=== PATIENT | female | born 1995 | race Caucasian/White ===

== ENCOUNTER 2020-09-09 06:42 | Inpatient (IN) | payer OTHER, SELFPAY ==
[2020-09-09] VITALS (61 sets, daily range): BP systolic 86–135; BP diastolic 33–79; PULSE 54–98; RESP 16; TEMP 36.1–36.5; O2SAT 100; BMI 37.8
--- NOTE | 2020-09-09 07:11 | LDADM ---
This patient, Argelia Mcneill, was admitted to Labor/Delivery/Recovery 104 on 09/09/20 at 06:42. Plans for labor, pain management and were discussed with patient. Patient/family oriented to hospital policies and general routines including ID bracelet, bed and alarms, visiting hours, pain management, procedures, bathroom and other care routines, personal items, smoking policy, room service/diet and guest tray routines, security routines, and visiting hours. Patient/Family are encouraged to report perceived risks to care and to ask questions if they do not understand what they are told or what they should do. See OBIX for further documentation.
[2020-09-09 07:12] LABS: Basophils Absolute Auto 0.1 K/mm3 (0.0-0.1); Basophils Percent Auto 0.3 % (0.2-1.2); Eosinophils Absolute Auto 0.1 K/mm3 (0-0.3); Eosinophils Percent Auto 0.8 % (0-4.4); Hematocrit 35.1 % (37.0-47.0); Hemoglobin 12.3 g/dL (12.0-15.0); Immature Granulocyte Absolute 0.18 K/mm3 (0.00-0.031); Immature Granulocyte Percent A 1.1 % (0-0.5); Lymphocytes Absolute Auto 3.36 K/mm3 (0.9-3.2); Lymphocytes Percent Auto 20.6 % (18.3-44.2); Mean Corpuscular Hemoglobin 32.3 pg (26-34); Mean Corpuscular Volume 92.1 fl (80-100); Mean Platelet Volume 9.2 fl (7.4-10.4); Monocytes Percent Auto 6.3 % (2.6-8.5); Neutrophils Absolute Auto 11.6 K/mm3 (1.3-6.7); Neutrophils Percent Auto 70.9 % (45.5-73.1); Platelet Count Result 317 k/mm3 (150-375); Red Blood Count 3.81 M/mm3 (4.2-5.4); Red Cell Distribution Width 13.1 % (11.5-14.5); White Blood Count 16.3 K/mm3 (4.5-10.0)
[2020-09-09] MEDS: LACTATED RINGERS 1,000 ML 125 ML IV CONT ×2 (07:22→09:21)
[2020-09-09] MEDS: AMPICILLIN 2 GM/NS 100 ML 2 GM/100 ML BAG IVPB (07:22)
[2020-09-09] MEDS: OXYTOCIN 30 UNITS/NS 500 ML 30 UNITS/500 ML BAG IV CONT (07:23)
--- NOTE | 2020-09-09 07:46 | WPDOBADMIT ---
Obstetrics - Admit Note Admission Note: record reviewed. No pertinent additions to the history and/or any subsequent changes in the physical findings that are not consistent with the expected course of the were found. EIl at 39.2 weeks gestation gbs negative, sve 3-4/60/-2 AROM minimal amount of clear fluid Additions to the history and/or subsequent changes in the physical findings follow. None.
[2020-09-09 08:25] LABS: Amphetamine Screen Urine Negative (Negative); Barbiturate Screen Urine Negative (Negative); Benzodiazepines Screen Urine Negative (Negative); Cannabinoid Screen Urine Positive (Negative); Cocaine Screen Urine Negative (Negative); Methadone Screen Urine Negative (Negative); Opiate Screen Urine Negative (Negative); Phencyclidine Screen Urine Negative (Negative)
[2020-09-09] MEDS: SODIUM CHLORIDE 0.9% IV 300 ML 600 ML I-UTERINE (11:13)
--- NOTE | 2020-09-09 16:19 | PM.OBPRVD ---
OB - Delivery Note Procedure Delivery date: 09/09/20 Procedure: vaginal delivery Intrapartal events: None Induction method: AROM and per pitocin protocol Delivery monitor: internal FHT and internal uterine Laceration Description: None Estimated blood loss (mL): 124 Anesthesia type: Epidural Disposition: other () Baby Date of : 09/09/20 Time of : 16:10 Weeks of gestation at delivery: 39 Infant gender: Male Weight (pounds): 6 Weight (ounces): 12 presentation: vertex position: Right Occiput Anterior Placenta delivery description: Spontaneous cord vessel description: 3 Vessels and Nuchal Cord
[2020-09-09] MEDS: OXYTOCIN 30 UNITS/NS 500 ML 30 UNITS/500 ML BAG 125 UNITS IV CONT (16:43)
[2020-09-09] MEDS: WITCH HAZEL 40 PADS 1 PAD TOPICAL (18:45)
[2020-09-10] MEDS: ACETAMINOPHEN 325 MG TABLET 650 MG PO (04:30)
[2020-09-10] MEDS: IBUPROFEN 600 MG TABLET PO (04:30)
[2020-09-10 05:33] LABS: Hematocrit 31.4 % (37.0-47.0); Hemoglobin 10.8 g/dL (12.0-15.0)
[2020-09-10 07:35] LABS: Rapid Plasma Reagin Non-Reactive (NonReactive)
--- NOTE | 2020-09-10 07:40 | WPDANLDPN2 ---
Anes-Prog Note L&D Date/Time: 09/10/20 07:40 Comfortable throughout: labor and delivery Neuraxial method: epidural Epidural/Spinal procedure site: clean & non-tender Neuro status: Neuro function grossly intact. Cardiovascular status: normal Respiratory status: normal Airway patency: baseline Mental status: baseline Post-Op hydration status: normal Vital Signs: Last Vital Signs Temp 36.1 C L 09/09/20 20:00 Pulse 76 09/09/20 20:00 Resp 16 09/09/20 20:00 BP 121/59 L 09/09/20 20:00 Pulse Ox 100 09/09/20 09:46 Pain score (VAS): 1 I/O: Intake & Output 09/09/20 09/09/20 09/10/20 15:59 23:59 07:59 Intake Total 1100 Output Total 224 Balance 1100 -224 Post-procedural complaints: none Patient feedback: Patient satisfied with anesthetic care.
[2020-09-10 07:50] VITALS: BP 112/50; PULSE 60; RESP 16; TEMP 36.5; O2SAT 100
--- NOTE | 2020-09-10 08:02 | PM.OBPNVD ---
OB - PN: Subj Subjective Date/time seen: 09/10/20 08:02 Patient comments: no complaints baby status: doing well OB - PN: Obj Data Labs CBC & Chem 7: 09/10/20 03:49 Labs: Laboratory Results - last 24 hr 09/09/20 09/09/20 09/09/20 07:04 07:04 07:59 Hgb Hct Urine Opiates Screen Negative Urine Methadone Screen Negative Ur Barbiturates Screen Negative Ur Phencyclidine Scrn Negative Ur Amphetamine Screen Negative U Benzodiazepines Scrn Negative Urine Cocaine Screen Negative U Cannabinoids Screen Positive A RPR Non-reactive Blood Type A Positive Antibody Screen Negative 09/10/20 03:49 Hgb 10.8 L Hct 31.4 L Urine Opiates Screen Urine Methadone Screen Ur Barbiturates Screen Ur Phencyclidine Scrn Ur Amphetamine Screen U Benzodiazepines Scrn Urine Cocaine Screen U Cannabinoids Screen RPR Blood Type Antibody Screen OB - PN A/P Plan day: 1 Plan: routine care and discharge home (F/U in 4 weeks) Time Spent With Patient Time: Total time spent is greater than 50% in coordination of care (as documented) at patient's floor/unit and/or counseling patient: Time with patient: less than 15 minutes Review of Systems Review of Systems: All systems reviewed & are unremarkable except as noted in HPI and below Exam Narrative: Exam Narrative: Fundus firm and vaginal flow controlled. No lower ext redness, warmth, or edema. Negative homans. Const: General: comfortable Chest: Breast/axilla inspection: normal inspection of the breasts Resp: Effort & Inspection: normal respiratory effort Cardio: Rate: regular rate GI: GI Palp: Yes Soft to palpation Psych: Appearance: grossly normal Affect: normal affect Attitude: cooperative Thought content: Yes Normal thought content present Judgement: Good judgement present (Psych)
--- NOTE | 2020-09-10 08:03 | PM.OBDSVD ---
DS: Admitting Diagnosis Admitting Diagnosis Admitting Diagnosis: induction DS: Discharge Diagnosis Discharge Diagnosis (1) Vaginal delivery: Code(s): O80 - Encounter for full-term uncomplicated delivery Status: Acute OB - DS: Summary OB Procedures : None OB Procedures Intrapartum: Spontaneous Vag Delivery OB Procedures: : None Time Spent with Patient Time attestation: Total time spent providing and/or coordinating discharge services: DS: Data Data Completed and Pending Labs on day of discharge: Labs from last 24 hours 09/10/20 09/09/20 09/09/20 03:49 07:59 07:04 Hgb 10.8 L Hct 31.4 L Urine Opiates Screen Negative Urine Methadone Screen Negative Ur Barbiturates Screen Negative Ur Phencyclidine Scrn Negative Ur Amphetamine Screen Negative U Benzodiazepines Scrn Negative Urine Cocaine Screen Negative U Cannabinoids Screen Positive A RPR Blood Type A Positive Antibody Screen Negative 09/09/20 07:04 Hgb Hct Urine Opiates Screen Urine Methadone Screen Ur Barbiturates Screen Ur Phencyclidine Scrn Ur Amphetamine Screen U Benzodiazepines Scrn Urine Cocaine Screen U Cannabinoids Screen RPR Non-reactive Blood Type Antibody Screen Discharge Plan Discharge Attending physician on discharge: Juan Daniel Cedeno Discharging Clinician: Allegra Chan Patient Disposition: Home, Self-Care Activity: pelvic rest Diet: as tolerated Patient Instructions: Antibiotic Form Stand Alone Forms: General Discharge Information Follow-up/Referrals: Juan Daniel Cedeno MD [Physician] - Discharge Medications: No Action No Home Medications RF: 0 Date of admission: 09/09/20 06:42 Primary Care Provider: PHYSICIAN,INTERPRETER TRANSLATOR Admitting Provider: Juan Daniel Cedeno Attending physician on admission: Juan Daniel Cedeno Condition: Stable
--- NOTE | 2020-09-10 12:00 | PC.NURSE ---
Patient viewed the discharge video Mother & Baby Care, The First Two Weeks . Patient was given the opportunity and encouraged to ask questions. Patient verbalized understanding of information shared and has been given the mother/baby guide for home reference.
[2020-09-11 09:20] VITALS: BP 129/63; PULSE 69; RESP 20; TEMP 36.7; O2SAT 100
== END 2020-09-10 17:56 | disposition home or self-care (01) | DRG 560 ==
LOC: ANHLDR 08:32 → ANHOB2 19:57
PROVIDERS: Advanced Practice Midwife; Admitting Provider Obstetrics & Gynecology; Visit Provider Obstetrics & Gynecology
DX: O69.81X0 Labor and delivery complicated by cord around neck, without compression, not applicable or unspecified (principal); Z37.0 Single live birth; Z3A.39 39 weeks gestation of pregnancy; O99.52 Diseases of the respiratory system complicating childbirth; J45.909 Unspecified asthma, uncomplicated; O99.324 Drug use complicating childbirth; F12.90 Cannabis use, unspecified, uncomplicated; O99.344 Other mental disorders complicating childbirth; F41.8 Other specified anxiety disorders
CPT/HCPCS: 36415; 80307; 85014; 85018; 85025; 86592; 86850; 86900; 86901; A9270; J0290; J2590; J2795; J7030; J7120

== ENCOUNTER 2021-06-04 13:57 | Emergency (ER) | payer OTHER, SELFPAY ==
--- NOTE | ~2021-06-04 | XR_ITS ---
EXAMINATION: XR chest 2V DATE: 06/04/2021 14:49 INDICATION: Right-sided chest pain and tightness TECHNIQUE: PA and lateral views of the chest were obtained. COMPARISON: None FINDINGS: The lungs are clear with no focal airspace opacities, pulmonary edema, pleural effusion or pneumothor ax. The cardiomediastinal silhouette is normal. Visualized bones and soft tissues are unremarkable. IMPRESSION: 1. Normal chest radiograph. Reviewed, dictated and finalized at location A. IMPRESSION: 1. Normal chest radiograph.
--- NOTE | 2021-06-04 14:00 | ECG_ITS ---
Measurements Intervals [place] Rate: 99 P: 61 WA: 124 QRS: 52 QRSD: 100 T: 51 QT: 345 QTc: 443 Interpretive Statements SINUS RHYTHM WITH SINUS ARRHYTHMIA NONSPECIFIC T-WAVE ABNORMALITY- ANTEROLATERAL LEADS BASELINE WANDER- V3-V4 BORDERLINE ECG Electronically Signed On 06-04-2021 14:36:57 CDT by Giovanni Jackson D.O.
[2021-06-04 14:25] VITALS: BP 144/84; PULSE 96; RESP 16; TEMP 37.1; O2SAT 100
[2021-06-04 14:57] LABS: Basophils Percent Auto 0.3 % (0.2-1.2); Eosinophils Absolute Auto 0.2 K/mm3 (0-0.3); Eosinophils Percent Auto 1.6 % (0-4.4); Hematocrit 43.3 % (37.0-47.0); Hemoglobin 14.6 g/dL (12.0-15.0); Immature Granulocyte Absolute 0.03 K/mm3 (0.00-0.031); Immature Granulocyte Percent A 0.3 % (0-0.5); Lymphocytes Absolute Auto 2.74 K/mm3 (0.9-3.2); Lymphocytes Percent Auto 27.9 % (18.3-44.2); Mean Corpuscular HGB Conc 33.7 g/dl (32-36); Mean Corpuscular Hemoglobin 31.5 pg (26-34); Mean Corpuscular Volume 93.3 fl (80-100); Mean Platelet Volume 9.1 fl (7.4-10.4); Monocytes Absolute Auto 0.7 K/mm3 (0.1-0.6); Monocytes Percent Auto 6.6 % (2.6-8.5); Neutrophils Absolute Auto 6.2 K/mm3 (1.3-6.7); Neutrophils Percent Auto 63.3 % (45.5-73.1); Platelet Count Result 351 k/mm3 (150-375); Red Blood Count 4.64 M/mm3 (4.2-5.4); Red Cell Distribution Width 12.7 % (11.5-14.5); White Blood Count 9.8 K/mm3 (4.5-10.0)
[2021-06-04 15:09] LABS: Prothrombin Time 12.6 Seconds (11.1-14.7)
[2021-06-04 15:10] LABS: Partial Thromboplastin Time 26.4 SECONDS (22.3-36.8)
--- NOTE | 2021-06-04 15:32 | ED.CHESTPAIN ---
HPI - Chest Pain General Chief Complaint: Chest Pain Stated Complaint: chest pain/dizziness Time Seen by Provider: 06/04/21 15:28 Source: RN notes reviewed History of Present Illness HPI narrative: Patient presents to emergency department from home for chest pain. Patient states symptoms began 2 days ago. Pain is located midsternal chest and radiates around under the right breast described as sharp and stabbing. Patient states pain is worse with movement and deep inspiration states she is taking nothing for the pain. States the pain has been constant over the past 2 days she denies any fevers or chills abdominal pain nausea vomiting diarrhea or any other symptoms she states she does feel like something is stuck in her throat but is had no difficulty swallowing and no throat pain Related Data Allergies Allergy/AdvReac Type Severity Reaction Status Date / Time No Known Allergies Allergy Verified 06/04/21 15:35 Review of Systems Review of Systems: Gen.: Denies fevers or chills ENT: Denies congestion Respiratory: Denies shortness of breath or cough CV: See HPI GI: Denies abdominal pain nausea, emesis or diarrhea Musculoskeletal: Denies back pain or muscle pain Neuro: Denies numbness, tingling, weakness or focal weakness Skin: Denies rash Except as documented, all other systems reviewed and negative [facility] Past Medical History Medical History (Updated 06/04/21 @ 16:35 by Kyle Boo DO) Patient denies significant medical history Family History Family History (Updated 08/30/20 @ 14:34 by Lukas Gramajo RN) Other No pertinent family history Social History Social History Smoking status: Current every day smoker Tobacco type: cigarettes Substance use: current Gender identity (if verbalized by the patient): Female Spiritual care concerns: No Exam Narrative: APPEARANCE: No acute distress, nontoxic, resting in bed EYES: EOMI HEENT: Normocephalic, atraumatic, OMM RESPIRATORY: No respiratory distress Clear to auscultation bilaterally with no rhonchi wheezing or rales. CARDIOVASCULAR: Regular rate and rhythm without murmurs rubs or gallops. Chest: Tender palpation over anterior chest just to the right of the sternum and region of ribs 7 and 8 with tenderness up under the right breast pain increased with rotation of the torso on deep inspiration ABDOMINAL: Soft, nontender, nondistended, no rebound or guarding MUSCULOSKELETAl: Moves all extremities. No clubbing, cyanosis or edema. NEURO: Awake and alert. Following commands, speech normal, no focal deficits SKIN:: Warm, dry. No rashes lesions or abrasions PSYCHIATRIC: Normal affect/mood, Course Course Emergency Course: Patient states chest pain is improved at this Discussed with patient results of workup and diagnosis. Discussed need for follow-up with primary care, proper use of medication, and reasons to return to the emergency department. Patient understands and agrees to current treatment plan Vital Signs Vital signs: Vital Signs Temperature 98.7 F 06/04/21 14:25 Pulse Rate 96 06/04/21 14:25 Respiratory Rate 16 06/04/21 14:25 Blood Pressure 144/84 H 06/04/21 14:25 Pulse Oximetry 100 06/04/21 14:25 Temperature 98.7 F 06/04/21 14:25 Pulse Rate 96 06/04/21 14:25 Respiratory Rate 16 06/04/21 14:25 Blood Pressure 144/84 H 06/04/21 14:25 Pulse Oximetry 100 06/04/21 14:25 MDM - Chest Pain MDM Narrative Medical decision making narrative: Patient's EKGs and labs are without significant high risk changes. Cardiac risk factors reviewed. Patient is felt likely low risk for ACS and reasonable for further risk stratification testing as an outpatient. Pain was not sudden or maximal in onset without tearing or ripping quality. No other signs of symptoms suggest aortic dissection. A low-risk Wells criteria is noted, PE is felt to be unlikely. No pneumonia seen on evaluation tod
--- NOTE | 2021-06-04 15:43 | PC.NURSE ---
Pt lying on stretcher talking on phone since arriving to room. Pt rates her pain 8/10 while talking on phone.
[2021-06-04] MEDS: KETOROLAC 30 MG/ML VIAL (*BKC) IV PUSH (15:44)
[2021-06-04 15:52] VITALS: PULSE 67
[2021-06-04 15:52] LABS: D Dimer 0.27 ug/mL (<0.48)
[2021-06-04 15:54] LABS: Anion Gap 11 mmol/L (8-16); Blood Urea Nitrogen 12 mg/dL (7-17); Calcium 10.3 mg/dL (8.4-10.2); Carbon Dioxide 24 mmol/L (22-30); Chloride 107 mmol/L (98-107); Estimated CRCL calculation 138 ml/min; Estimated Glomerular Filt Rate > 60; Glucose 106 mg/dL (65-110); Potassium 3.9 mmol/L (3.4-5.0); Sodium 142 mmol/L (137-145)
[2021-06-04 15:55] LABS: Alanine Aminotransferase 20 U/L (4-35); Albumin Level 4.9 g/dL (3.5-5.1); Alkaline Phosphatase 68 U/L (38-126); Aspartate Amino Transferase 22 U/L (14-36); Bilirubin,Total 1.2 mg/dL (0.2-1.3); Lipase 41 U/L (23-300)
[2021-06-04 16:06] LABS: Troponin I < 0.012 ng/mL (0.000-0.034)
[2021-06-04 16:54] VITALS: BP 132/72; PULSE 67; RESP 18; O2SAT 100
== END 2021-06-04 16:55 | disposition home or self-care (01) ==
PROVIDERS: General Practice; Emergency Provider Emergency Medicine
DX: R07.89 Other chest pain (principal); F17.210 Nicotine dependence, cigarettes, uncomplicated; R94.31 Abnormal electrocardiogram [ECG] [EKG]
CPT/HCPCS: 36415; 71046; 80048; 80076; 83690; 84484; 85025; 85380; 85610; 85730; 93005; 96374; 99284; J1885

== ENCOUNTER 2021-07-15 11:35 | Emergency (ER) | payer OTHER, SELFPAY ==
[2021-07-15 12:08] VITALS: BP 121/63; PULSE 78; RESP 16; TEMP 36.6; O2SAT 99
--- NOTE | 2021-07-17 13:38 | ED.URI ---
HPI - URI/Sore Throat General Chief Complaint: Upper Respiratory Infection Stated Complaint: SORE THROAT Time Seen by Provider: 07/15/21 13:12 Source: patient and RN notes reviewed Mode of arrival: ambulatory Limitations: no limitations History of Present Illness HPI Narrative: Patient presents today with a 3 to 4-day history of sore throat and nasal congestion with fever on day 1 of illness up to 102.3 but none since then. She currently rates her pain 10/10 and has been taking ibuprofen and DayQuil without relief. MD elicited complaint: sore throat and nasal congestion Related Data Allergies Allergy/AdvReac Type Severity Reaction Status Date / Time No Known Allergies Allergy Verified 06/04/21 15:35 Review of Systems Review of Systems: CONSTITUTIONAL: Denies body aches,chills, or sweats. + Fever?resolved EYES: Denies visual changes, redness, or discharge. ENT: Denies rhinorrhea, or otalgia. + Sore throat, congestion CARDIOVASCULAR: Denies chest pain, palpitations, or edema. RESPIRATORY: Denies cough or dyspnea. GASTROINTESTINAL: Denies abdominal pain, nausea, vomiting, or diarrhea. GENITOURINARY: Denies dysuria or hematuria. SKIN: Denies rash, itching, or wounds. MUSCULOSKELETAL: Denies back pain, joint pain, or myalgia. NEUROLOGIC: Denies headache, numbness, tingling, or weakness. PSYCH: Denies depression or anxiety. PMFSH Past Medical History Medical History Patient denies significant medical history Family History Family History Other No pertinent family history Social History Social History Smoking status: Current every day smoker Tobacco type: cigarettes Substance use: current Gender identity (if verbalized by the patient): Female Spiritual care concerns: No Comments At time of signature, I have reviewed and agree with nursing past medical, surgical, social and family history unless otherwise noted. Please see nursing chart for further information. There is no relevant family history pertinent to the presenting complaint Exam Narrative: GENERAL: Well-appearing, well-nourished, and in no acute distress. HEAD: Normocephalic, atraumatic. EYES: EOMI. No redness or drainage. Conjunctivae normal. ENT: Mucous membranes pink and moist. Nares clear. No rhinorrhea. TMs normal bilaterally. Throat mildly erythematous and moderately edematous. Uvula midline. NECK: Normal AROM. Supple. No lymphadenopathy. CHEST: No respiratory distress. Clear to auscultation. HEART: Regular rate and rhythm. No murmur appreciated. Normal peripheral pulses. EXTREMITIES: Normal range of motion. No edema. SKIN: Warm, dry, no rash. Capillary refill normal. Normal skin turgor. NEURO: No focal deficits. Alert and oriented x3. Gait steady. PSYCH: Normal affect. No signs of depression or anxiety. Course Vital Signs Vital signs: Vital Signs Temperature 97.8 F 07/15/21 12:08 Pulse Rate 78 07/15/21 12:08 Respiratory Rate 16 07/15/21 12:08 Blood Pressure 121/63 07/15/21 12:08 Pulse Oximetry 99 07/15/21 12:08 Temperature 97.8 F 07/15/21 12:08 Pulse Rate 78 07/15/21 12:08 Respiratory Rate 16 07/15/21 12:08 Blood Pressure 121/63 07/15/21 12:08 Pulse Oximetry 99 07/15/21 12:08 Reviewed. Pt has been instructed to follow up with her PCP regarding her elevated blood pressure today. MDM - URI/Sore Throat Differential Diagnosis Differential diagnosis: Likely upper respiratory infection, otitis media, viral infection and pharyngitis Critical Care Time Critical Care Time Critical Care Time: No Discharge Plan Discharge Clinical Impression: Pharyngitis Patient Disposition: Home, Self-Care Condition: Stable Prescriptions: No Action ibuprofen [IBU] 600 mg tablet 600 mg PO Q6H PRN (Reason: ed
== END 2021-07-15 13:55 | disposition home or self-care (01) ==
LOC: EXPCOLL 11:38
PROVIDERS: Emergency Provider Nurse Practitioner
DX: J02.9 Acute pharyngitis, unspecified (principal); F17.200 Nicotine dependence, unspecified, uncomplicated
CPT/HCPCS: 87070; 87077; 87880; 99213; G0463

== ENCOUNTER → 2021-10-05 10:05 | Outpatient (NON) | payer OTHER, SELFPAY ==
[2020-07-17 16:53] LABS: SARS-CoV-2 RNA PCR Negative
== END | disposition home or self-care (01) ==
PROVIDERS: Visit Provider Obstetrics & Gynecology
DX: O99.519 Diseases of the respiratory system complicating pregnancy, unspecified trimester (principal); Z20.828 Contact with and (suspected) exposure to other viral communicable diseases
CPT/HCPCS: 87635; C9803; U0003

== ENCOUNTER 2021-10-10 13:22 | Emergency (ER) | payer OTHER, SELFPAY ==
[2021-10-10 13:35] VITALS: BP 127/75; PULSE 95; RESP 16; TEMP 37.1; O2SAT 100
[2021-10-10 13:41] VITALS: BP 127/75; PULSE 95; RESP 16; TEMP 37.1; O2SAT 100
--- NOTE | 2021-10-10 14:01 | ED.URI ---
HPI - URI/Sore Throat General Chief Complaint: Upper Respiratory Infection Stated Complaint: Sore Throat,Stuffy Nose Time Seen by Provider: 10/10/21 14:02 Source: patient, RN notes reviewed and old records reviewed Mode of arrival: ambulatory Limitations: no limitations History of Present Illness HPI Narrative: 26-year-old female presents to the [facility] with complaints of right ear pain for 2 to 3 days. Has been taking Tylenol and ibuprofen for pain. Patient reports pain is traveling into her neck and into her jaw. Denies any past medical or surgical history. MD elicited complaint: sore throat and nasal congestion Related Data Allergies Allergy/AdvReac Type Severity Reaction Status Date / Time No Known Allergies Allergy Verified 10/10/21 13:35 Review of Systems Review of Systems: All systems reviewed & are unremarkable except as noted in HPI and below Constitutional: Constitutional: Reports no additional constitutional complaints, Denies chills and Denies fever(s) Eyes: Eyes: Reports no additional eye complaints and Denies change in vision ENT: Reports as per HPI and Denies nasal congestion Comments: Right ear pain Cardiovascular: Cardiovascular: Reports no additional cardiovascular complaints and Denies chest pain Respiratory: Respiratory: Reports no additional respiratory complaints, Denies cough and Denies dyspnea Gastrointestinal: Gastrointestinal: Reports no additional gastrointestinal complaints, Denies abdominal pain, Denies diarrhea, Denies nausea and Denies vomiting Musculoskeletal: Musculoskeletal: Reports no additional musculoskeletal complaints Integumentary/Breasts: Skin/Breast: Reports system reviewed and no additional complaints, except as docu Neurologic: Reports system reviewed and no additional complaints, except as documented Psychiatric: Psychiatric: Reports no additional psychiatric complaints Allergic/Immunologic: Allergic/Immunologic: Reports no additional allergic/immunologic complaints [facility] Past Medical History Medical History (Updated 10/10/21 @ 14:12 by Jolynn Muñiz) Patient denies significant medical history Surgical History Surgical History (Updated 10/10/21 @ 17:45 by Jolynn Muñiz) No significant past surgical history Family History Family History Other No pertinent family history Social History Social History Smoking status: Current every day smoker Tobacco type: cigarettes Substance use: current Gender identity (if verbalized by the patient): Female Spiritual care concerns: No Comments At the time of my signature, I reviewed and agree with the nursing past medical, surgical, social, and family history. There is no relevant family history pertinent to the patient complaint. Exam Const: General: alert, acute distress mild (Pain) and ill appearing acutely Nutritional Appearance: well nourished and obese Orientation/consciousness: patient oriented x3 Limitations: no limitations HENMT: Head: normal to inspection Ears: external ears normal, Abnormal EAC present erythema on the right and EAC tenderness on the right; no edema and no otic discharge and TM abnormal wth effusion serous on the left and erythematous on the right General nose exam: Normal external nose present Face and sinus: normal facial exam Mouth: Yes Normal oral and palatal mucosa present Throat: posterior oropharynx normal, tonsils normal and uvula midline Other: No mastoid tenderness Eyes: Conjunctivae: conjunctivae normal Pupils: Equal, round and reactive pupils present Neck: Neck: normal visual inspection, no lymphadenopathy and no meningeal signs Chest: Chest palpation & inspection: normal inspection of the chest Resp: Effort & Inspection: normal respiratory effort Auscultation: clear to auscultation bilaterally Cardio: Rate: regular rate Rhythm: regular rhythm Back/Spine/Pel
== END 2021-10-10 14:16 | disposition home or self-care (01) ==
PROVIDERS: Emergency Provider Nurse Practitioner
DX: H66.91 Otitis media, unspecified, right ear (principal)
CPT/HCPCS: 87081; 87880; 99213; G0463

== ENCOUNTER 2022-09-11 10:48 | Emergency (ER) | payer OTHER, SELFPAY ==
[2022-09-11 11:00] VITALS: BP 138/72; PULSE 81; TEMP 36.7; O2SAT 97
--- NOTE | 2022-09-11 11:01 | ED.URI ---
HPI - URI/Sore Throat General Chief Complaint: Upper Respiratory Infection Stated Complaint: Coughing, Sore Throat Time Seen by Provider: 09/11/22 11:01 Source: patient Mode of arrival: ambulatory Limitations: no limitations History of Present Illness HPI Narrative: 27-year-old female presents with complaint of nasal congestion, scratchy throat, cough, Burning pain to chest when taking a deep breath. Denies shortness of breath. States she did for COVID test at home that were all negative. has been using her daughter's inhaler with no relief of cough. Afebrile. Denies nausea vomiting diarrhea. All systems reviewed and negative except as noted above. Related Data Allergies Allergy/AdvReac Type Severity Reaction Status Date / Time No Known Allergies Allergy Verified 09/11/22 10:52 Review of Systems Review of Systems: CONSTITUTIONAL: Denies fever, chills, or sweats. EYES: Denies visual changes, redness, or discharge. ENT: Reports rhinorrhea, congestion, sore throat. Denies otalgia. CARDIOVASCULAR: Denies chest pain, palpitations, or edema. RESPIRATORY: reports cough. Denies dyspnea. GASTROINTESTINAL: Denies abdominal pain, nausea, vomiting, or diarrhea. GENITOURINARY: Denies dysuria or hematuria. SKIN: Denies rash or itching. MUSCULOSKELETAL: Denies back pain, joint pain, or myalgia. NEUROLOGIC: Denies headache, numbness, or weakness. PSYCHIATRIC: Denies anxiety or depression. All other systems reviewed are negative, except as documented in HPI. [facility] Past Medical History Medical History (Updated 09/11/22 @ 11:16 by Merary Arvizu NP) Patient denies significant medical history Surgical History Surgical History (Updated 10/10/21 @ 17:45 by Jolynn Muñiz APRN) No significant past surgical history Family History Family History Other No pertinent family history Social History Social History Smoking status: Current every day smoker Tobacco type: cigarettes Substance use: current Gender identity (if verbalized by the patient): Female Spiritual care concerns: No Comments At time of signature, agree with nursing past medical, surgical, social and family history. There is no relevant family history pertinent to the presenting complaint. Exam Narrative: GENERAL: This is a well-nourished, well-developed patient, in no apparent distress. HEAD: normocephalic, atraumatic. EYES: PERRL. Sclera clear/white. Vision is grossly intact. EARS: External ears normal, auditory canals clear and without drainage, TMs normal without perforation. Hearing grossly intact. NOSE: External nose normal with clear nasal drainage. THROAT: Mucous membranes moist, Erythema to posterior pharynx with clear postnasal drainage. NECK: Neck supple, non-tender without lymphadenopathy, masses or thyromegaly. CARDIOVASCULAR: Regular rate and rhythm without murmurs, gallops, or rubs. RESPIRATORY: coarse lung sounds to left upper lobe. SKIN: warm, Dry, intact with no suspicious lesions or rash, good texture and turgor. NEURO: awake, alert, and oriented to person, place and time. There were no obvious focal neurologic abnormalities. EXTREMITIES: No joint tenderness, effusion, or edema noted. Course Course Level of Care: Express Care Visit Vital Signs Vital signs: Vital Signs Temperature 36.7 C 09/11/22 11:00 Pulse Rate 81 09/11/22 11:00 Blood Pressure 138/72 09/11/22 11:00 Pulse Oximetry 97 09/11/22 11:00 Oxygen Delivery Room Air 09/11/22 11:00 Temperature 36.7 C 09/11/22 11:00 Pulse Rate 81 09/11/22 11:00 Blood Pressure 138/72 09/11/22 11:00 Pulse Oximetry 97 09/11/22 11:00 Oxygen Delivery Room Air 09/11/22 11:00 Reviewed MDM - URI/Sore Throat MDM Narrative Medical decision making narrative: patient has coarse lung sounds to left upper lobe concerning for p
== END 2022-09-11 11:27 | disposition home or self-care (01) ==
PROVIDERS: Emergency Provider Nurse Practitioner Family
DX: J06.9 Acute upper respiratory infection, unspecified (principal); F17.210 Nicotine dependence, cigarettes, uncomplicated
CPT/HCPCS: 87804; 99213; G0463

== ENCOUNTER 2023-03-09 13:09 | Emergency (ER) | payer OTHER, SELFPAY ==
[2023-03-09 13:15] VITALS: BP 128/63; PULSE 77; RESP 16; TEMP 37.1; O2SAT 99
--- NOTE | 2023-03-09 13:15 | ED.URI ---
HPI - URI/Sore Throat General Chief Complaint: Upper Respiratory Infection Stated Complaint: 3 days pain in left ear; cough; stuffy nose Time Seen by Provider: 03/09/23 13:15 Source: patient Mode of arrival: ambulatory Limitations: no limitations History of Present Illness HPI Narrative: Argelia is a 27-year-old female patient presenting to clinic today with complaints of left ear pain, cough, and stuffy nose x3 days. She denies any fever or chills. No known exposure to anyone with strep, COVID, flu. Denies sore throat MD elicited complaint: cough, nasal congestion and other (Ear pain) Related Data Allergies Allergy/AdvReac Type Severity Reaction Status Date / Time No Known Allergies Allergy Verified 03/09/23 13:18 Review of Systems Review of Systems: Pertinent positives per HPI. Patient denies any fever, chills, rash, headache, visual changes, dizziness, cough, shortness of breath, chest pain, palpitations, nausea, vomiting, diarrhea, constipation, abdominal pain, or any urinary issues. [facility] Past Medical History Medical History Patient denies significant medical history Surgical History Surgical History No significant past surgical history Family History Family History Other No pertinent family history Social History Social History Smoking status: Current every day smoker Tobacco type: cigarettes Substance use: current Gender identity (if verbalized by the patient): Female Spiritual care concerns: No Comments At the time of my signature, I reviewed and agree with the nursing past medical, surgical, social, and family history. There is no relevant family history pertinent to the patient complaint. Exam Narrative: General: Well-developed, overweight, in no apparent distress Head: Normocephalic, atraumatic Eyes: Pupils equally round and reactive to light bilaterally, EOM intact, sclera and conjunctive clear, no discharge, lids normal Ears: Right TM intact and retracted, left TM bulging, red, unable to determine if there is a ruptured due to blood on the outside of the TM, right ear canal clear, no purulent drainage, grossly hearing normal. Nose: Nares patent, clear discharge, no inflammation, no sinus tenderness. Mouth: Oral pharynx red without lesions or masses, good dentition, MMM. Postnasal drip Neck: Supple, trachea midline, no enlargement of anterior or posterior cervical nodes, no thyroid masses or goiter palpable. Cardio: Regular rate and rhythm, s1 and s2 normal, no murmur appreciated. Resp: Clear to auscultation bilaterally, no rhonchi, rales, wheezing or rubs Course Course Emergency Course: Portions of this record may have been created with voice recognition software. Level of Care: Express Care Visit Vital Signs Vital signs: Vital signs reviewed MDM - URI/Sore Throat MDM Narrative Medical decision making narrative: At the time of visit patient is resting comfortably on exam table. I suspect patient has otitis media with possible rupture. Will send in prescription for ofloxacin ear drops and amoxicillin. Supportive measures were discussed with the patient and she voiced understanding of the discharge instructions and agrees to treatment plan. Differential Diagnosis Differential diagnosis: Likely upper respiratory infection, otitis media, sinusitis, viral infection, bronchitis, influenza (Ruptured eardrum), pharyngitis and other (COVID) Discharge Plan Discharge Clinical Impression: Upper respiratory infection, Otitis media of left ear Patient Disposition: Home, Self-Care Condition: Stable Instructions: Antibiotic Form, Ear Infection (ED), Upper Respiratory Infection (ED) Additional Instructions: URI with left
== END 2023-03-09 13:29 | disposition home or self-care (01) ==
PROVIDERS: Emergency Provider Nurse Practitioner Family
DX: J06.9 Acute upper respiratory infection, unspecified (principal); H66.92 Otitis media, unspecified, left ear; F17.210 Nicotine dependence, cigarettes, uncomplicated
CPT/HCPCS: 99213; G0463

== ENCOUNTER 2024-11-02 08:29 | Emergency (ER) | payer OTHER, SELFPAY ==
[2024-11-02 08:37] VITALS: BP 118/67; PULSE 69; RESP 16; TEMP 36.6; O2SAT 99
--- NOTE | 2024-11-02 09:04 | ED_ITS ---
HPI - URI/Sore Throat General Chief Complaint: Upper Respiratory Infection Stated Complaint: Sore Throat/Ears Irritation Time Seen by Provider: 11/02/24 09:04 Source: patient, RN notes reviewed and old records reviewed Mode of arrival: ambulatory Limitations: no limitations History of Present Illness HPI Narrative: Patient presents with fevers, chills, runny nose, sore throat, headache, body aches. She reports that all symptoms began suddenly on October 31. She denies any shortness of breath. She has not been taking anything for her symptoms. She reports that right ear pain and throat pain are her most bothersome symptoms. Denies any injury or trauma. Voices no other concerns or complaints Related Data Allergies Allergy/AdvReac Type Severity Reaction Status Date / Time No Known Allergies Allergy Verified 11/02/24 08:58 Review of Systems Review of Systems: All systems reviewed & are unremarkable except as noted in HPI and below Constitutional: Constitutional: Reports no additional constitutional comp laints, Reports body ache(s), Reports fever(s), Reports headache(s) and Reports lethargy ENT: Reports system reviewed and no additional complaints, except as documented, Reports otalgia, Reports headache(s), Reports nasal congestion, Reports nasal discharge and Reports sore throat Cardiovascular: Cardiovascular: Reports no additional cardiovascular complaints Respiratory: Respiratory: Reports no additional respiratory complaints Gastrointestinal: Gastrointestinal: Reports no additional gastrointestinal complaints PMFSH Past Medical History Medical History Patient denies significant medical history Surgical History Surgical History No significant past surgical history Family History Family History Other No pertinent family history Social History Social History Smoking status: Current every day smoker Tobacco type: cigarettes Substance use: current Gender identity (if verbalized by the patient): Female Spiritual care concerns: No Comments At the time of my signature, I reviewed and agree with the nursing past medical, surgical, social, and family history. There is no relevant family history pertinent to the patient complaint. Exam Const: General: cooperative, no acute distress, alert and awake Orientation/consciousness: oriented to person, oriented to place and oriented to time HENMT: Head: normal to inspection Ears: TM's normal bilaterally Mouth: Yes moist mucous membranes Throat: posterior oropharynx abnormal erythema and postnasal drainage Resp: Effort & Inspection: normal respiratory effort and able to speak in comp lete sentences Auscultation: clear to auscultation bilaterally, no crackles, no rales, no rhonchi and no wheezes Cardio: Palpation: normal PMI Rate: regular rate Rhythm: regular rhythm Heart sounds: S1 normal heart sound present and S2 normal heart sound present Neuro: General: oriented to person, oriented to place and oriented to time Cranial nerves: Yes CN's II-XII intact bilaterally Psych: Appearance: grossly normal Thought process: Normal thought process present Insight: Good insight present (Psych) Judgement: Good judgement present (Psych) Course Course Level of Care: Express Care Visit Vital Signs Vital signs: Vital Signs Temperature 97.9 F 11/02/24 08:37 Pulse Rate 69 11/02/24 08:37 Respiratory Rate 16 11/02/24 08:37 Blood Pressure 118/67 11/02/24 08:37 Pulse Oximetry 99 11/02/24 08:37 Oxygen Delivery Room Air 11/02/24 08:37 Temperature 97.9 F 11/02/24 08:37 Pulse Rate 69 11/02/24 08:37 Respiratory Rate 16 11/02/24 08:37 Blood Pressure 118/67 11/02/24 08:37 Pulse Oximetry 99 11/02/24 08:37 Oxygen Delivery Room Air 11/02/24 08:37 Reviewed MDM - URI/Sore Throat MDM Narrative Medical decision making narrative: Negative COVID, negative flu, negative strep. Culture pending. Symptoms likely viral in origin. Treat symptomatically. Discharge instructions reviewed with patient, as well as provided in writing per nursing staff. The instructions also include specific and strict return/GO TO THE ER as well as f/u information. All questions have been answered, and the patient deny any further questions with discharge and discharge plan. Some parts of this dictation were generated by voice recognition software and may contain typographical and/or grammatical inaccuracies. Differential Diagnosis Differential diagnosis: Likely upper respiratory infection, otitis media, sinusitis, viral infection, bronchitis, influenza and pharyngitis Medical Records Attestation: I reviewed the patient's medical records. Lab Data Attestation: I reviewed the patient's lab results. Discharge Plan Discharge Clinical Impression: Upper respiratory infection Qualifiers: URI type: unspecified viral URI Qualified Code(s): J06.9 - Acute upper re spiratory infection, unspecified Patient Disposition: Home, Self-Care Condition: Stable Instructions: Antibiotic Form, Cold Symptoms (ED) Additional Instructions: Take medications as prescribed. Follow with primary care provider. Emergency department for any new or worse symptoms Patient Language: Cypriot Prescriptions: New prednisone 50 mg tablet 50 mg PO DAILY Qty: 5 0RF Follow-up/Referrals: PHYSICIAN,GRADUATE TEACHER EDUCATION [Primary Care Provider] - 2 Weeks Stand Alone Forms: Work/School Release IP Time of Disposition: 09:41
[2024-11-02] MEDS: IBUPROFEN 400 MG TABLET 800 MG PO (09:28)
[2024-11-02 10:00] LABS: EDCOVIDSCREEN Negative (Negative); EDINFLUASCREEN Negative (Negative); EDINFLUBSCREEN Negative (Negative); EDSTREPNEGPOS1 Negative (Negative)
== END 2024-11-02 10:20 | disposition home or self-care (01) ==
PROVIDERS: Emergency Provider Nurse Practitioner Family
DX: J06.9 Acute upper respiratory infection, unspecified (principal); B34.9 Viral infection, unspecified; F17.210 Nicotine dependence, cigarettes, uncomplicated; Z20.822 Contact with and (suspected) exposure to COVID-19
CPT/HCPCS: 87081; 87426; 87804; 87880; 99213; A9270; G0463